=== PATIENT | male | born 1995 | race African-American/Black ===

== ENCOUNTER 2024-07-22 00:57 | Emergency (ER) | payer OTHER ==
[~2024-07-22] VITALS: Ht 175.3 cm; Wt 68.2 kg
[2024-07-22 02:30] VITALS: BP 111/64; TEMP 98; O2SAT 98
== END 2024-07-22 02:51 | disposition home or self-care (01) ==
LOC: M ED 00:57
DX: T40.0X1A Poisoning by opium, accidental (unintentional), initial encounter (principal); F11.10 Opioid abuse, uncomplicated